=== PATIENT | female | born 1965 | race American Indian/Alaskan Native ===

== ENCOUNTER 2021-02-08 20:59 | Emergency (ER) | payer OTHER ==
--- NOTE | 2021-02-08 21:53 | Event Note ---
ED Screening Note ED Screening Note: Dizziness with sensation of room spinning for the last 2 days Has associated nausea and vomiting symptoms are positional This initial assessment/diagnostic orders/clinical plan/treatment(s) is/are subject to change based on patients health status, clinical progression and re- assessment by fellow clinical providers in the ED. Further treatment and workup at subsequent clinical providers discretion. Patient/guardian urged not to elope from the ED as their condition may be serious if not clinically assessed and managed. Initial orders include: Labs, urine, EKG
[2021-02-08 23:31] LABS: Basophils # (Auto) 0.1 K/mm3 (0.0-0.1); Eosinophils # (Auto) 0.1 K/mm3 (0.0-0.4); Eosinophils % (Auto) 2.1 % (0.0-4.3); Hematocrit 40.3 % (30.3-42.9); Hemoglobin 13.3 gm/dl (10.1-14.3); Lymphocytes # (Auto) 2.4 K/mm3 (1.2-5.4); Lymphocytes % (Auto) 39.7 % (13.4-35.0); Mean Corpuscular HGB Conc 33 % (30-34); Mean Corpuscular Volume 85 fl (79-97); Monocytes # (Auto) 0.5 K/mm3 (0.0-0.8); Platelet Count 256 K/mm3 (140-440); Red Blood Count 4.73 M/mm3 (3.65-5.03); Red Cell Distribution Width 17.5 % (13.2-15.2)
[2021-02-08 23:52] LABS: Alanine Aminotransferase 24 units/L (7-56); Albumin 4.3 g/dL (3.9-5); BUN/Creatinine Ratio 20; Blood Urea Nitrogen 16 mg/dL (7-17); Calcium 9.3 mg/dL (8.4-10.2); Hemolysis Index 1
[2021-02-09 01:36] LABS: Bilirubin,Urine NEG (Negative); Blood,Urine NEG (Negative); Color,Urine Yellow (Yellow); Mucus,Urine 1+ /HPF; Protein,Urine <15 mg/dL mg/dL (Negative); Urobilinogen,Urine < 2.0 mg/dL (<2.0)
[2021-02-09] MEDS ORDERED: MECLIZINE 25 MG TAB PO ONE (08:06)
--- NOTE | 2021-02-09 08:11 | Emergency Department Report ---
HPI - General Chief Complaint: Nausea/Vomiting/Diarrhea Time Seen by Provider: 02/08/21 21:52 - HPI HPI: Room 25 The patient is a 55-year-old female present with a chief complaint of dizziness. The patient states on 01/23/2021 clonidine doses was decreased from 0.2 to 0.1 daily. The patient states approximately 2 to 3 days ago she began feeling dizzy and lightheaded. Patient states there were certain positions that she can find to decrease the symptoms. While lying down she states that feels as though the room is spinning. Patient states she then developed a frontal headache which has been constant. Patient admits to nausea vomiting. Patient denies any preceding trauma, fever or cough. Patient gives her headache score 5/10. The patient drove herself to the emergency department and there are no visitors present ED Past Medical Hx - Past Medical History Previous Medical History?: No Hx Hypertension: Yes - Surgical History Hx Appendectomy: Yes Hx Breast Surgery: Yes Additional Surgical History: - Family History Family history: no significant - Social History Smoking Status: Never Smoker Substance Use Type: None (Denies illicit drug), Alcohol (Occasional) - Medications Home Medications: Home Medications Medication Instructions Recorded Confirmed Last Taken Type HYDROcodone/APAP 5-325 [[place] 1 each PO Q6HR PRN #20 tablet 06/12/14 Unknown Rx 5/325] Omeprazole [Prilosec] 20 mg PO QDAY #30 capsule. 06/12/14 Unknown Rx Promethazine [Phenergan] 25 mg PO Q6H PRN #30 tablet 06/12/14 Unknown Rx Meclizine [Antivert] 25 mg PO TID PRN #20 tablet 02/09/21 Unknown Rx Ondansetron [Zofran ODT TAB] 8 mg PO Q8HR #20 tab.rapdis 02/09/21 Unknown Rx ED Review of Systems ROS: Stated complaint: HEADACHE;LIGHTHEADED;N/V Other details as noted in HPI Constitutional: denies: fever Eyes: denies: eye pain ENT: denies: throat pain Respiratory: denies: cough Cardiovascular: denies: chest pain Endocrine: no symptoms reported Gastrointestinal: nausea, vomiting Genitourinary: denies: dysuria Musculoskeletal: denies: back pain Neurological: headache Physical Exam - Physical Exam Vital Signs: Vital Signs 02/08/21 21:48 Temperature 98.2 F Pulse Rate 87 Respiratory 18 Rate Blood Pressure 157/89 O2 Sat by Pulse 97 Oximetry Physical Exam: GENERAL: The patient is well-developed well-nourished female lying on stretcher not appearing to be in acute distress. [] HEENT: Normocephalic. Atraumatic. Extraocular motions are intact. Patient has moist mucous membranes. No nystagmus noted NECK: Supple. Trachea midline CHEST/LUNGS: Clear to auscultation. There is no respiratory distress noted. HEART/CARDIOVASCULAR: Regular. There is no tachycardia. There is no gallop rub or murmur. ABDOMEN: Abdomen is soft, nontender. Patient has normal bowel sounds. There is no abdominal distention. SKIN: There is no rash. There is no edema. There is no diaphoresis. NEURO: The patient is awake, alert, and oriented. The patient is cooperative. The patient has no focal neurologic deficits. The patient has normal speech. Cranial nerves II through XII grossly intact. GCS 15. No dysmetria noted with [id number] bilaterally MUSCULOSKELETAL: There is no evidence of acute injury. ED Course Vital Signs 02/08/21 21:48 Temperature 98.2 F Pulse Rate 87 Respiratory 18 Rate Blood Pressure 157/89 O2 Sat by Pulse 97 Oximetry ED Medical Decision Making - Lab Data Result diagrams: 02/08/21 22:54 02/08/21 22:54 Laboratory Tests 02/08/21 02/08/21 02/08/21 22:54 22:54 Unknown WBC 5.9 RBC 4.73 Hgb 13.3 Hct 40.3 MCV 85 MCH 28 MCHC 33 RDW 17.5 H Plt Count 256 Lymph % (Auto) 39.7 H [place] % (Auto) 8.0 H Eos % (Auto) 2.1 Baso % (Auto) 1.0 Lymph # (Auto) 2.4 [place] # (Auto) 0.5 Eos # (Auto) 0.1 Baso # (Auto) 0.1 Seg Neutrophils % 49.2 Seg Neutrophils # 2.9 Sodium 139 Potassium 4.1 Chloride 101.9 Carbon Dioxide 27 Anion Gap 14 BUN 16 Creatinine 0.8 Estimated GFR > 60 BUN/Creatinine Ratio 20 Glucose 95 Calcium 9.3 Magnesium 2.10 Total Bilirubin 0.30 AST 21 ALT 24 Alkaline Phosphatase 116 Total Creatine Kinase 134 Total Protein 7.5 Albumin 4.3 Albumin/Globulin Ratio 1.3 Urine Color Yellow Urine Turbidity Slightly-cloudy Urine pH 5.0 Ur Specific [place] 1.025 Urine Protein <15 mg/dl Urine Glucose (UA) Neg Urine Ketones Neg Urine Blood Neg Urine Nitrite Neg Urine Bilirubin Neg Urine Urobilinogen < 2.0 Ur Leukocyte Esterase Neg Urine WBC (Auto) 1.0 Urine RBC (Auto) 2.0 U Epithel Cells (Auto) 9.0 Urine Mucus 1+ - EKG Data -: EKG Interpreted by [place] EKG shows normal: sinus rhythm Rate: normal - EKG Data When compared to previous EKG there are: previous EKG unavailable Interpretation: nonspecific ST-T wave blayne (T wave inversion in lead III) - Radiology Data Radiology results: report reviewed (CT head), image reviewed (CT head) [facility] [address] [id number] Cat Scan Report Signed Patient: JHOAN HAY MR#: [id number] : 1965 Acct:[id number] Age/Sex: 55 / F ADM Date: 02/08/21 Loc: ED Attending Dr: Ordering Physician: ZACKARY CRAWLEY MD Date of Service: 02/09/21 Procedure(s): CT head/brain wo con Accession Number(s): [id number] cc: ZACKARY CRAWLEY MD CT head/brain wo con INDICATION / CLINICAL INFORMATION: Vertigo. TECHNIQUE: All CT scans at this location are performed using CT dose reduction for ALARA by means of automated exposure control. COMPARISON: None available. FINDINGS: Ventricle size is normal for age. No mass or mass effect is seen. There is no evidence of intracranial hemorrhage. No obvious area of infarction is identified. Visualized paranasal sinuses are clear. IMPRESSION: No acute findings Signer Name: Martin Gamez MD FACR Signed: 02/09/2021 8:52 AM Workstation Name: [id number] Transcribed By: MS Dictated By: Martin Gamez MD Electronically Authenticated By: Martin Gamez MD Signed Date/Time: 02/09/21851 DD/ 9 TD/TT: Print Cancel - Differential Diagnosis Vertigo, ICH, hypertensive urgency, dehydration, Critical care attestation.: If time is entered above; I have spent that time in minutes in the direct care of this critically ill patient, excluding procedure time. ED Disposition Clinical Impression: Vertigo Disposition: DC-01 TO HOME OR SELFCARE Is pt being admited?: No Does the pt Need Aspirin: No Condition: Stable Instructions: Dizziness, Tnez-no-Yamc, Vertigo, [id number]-[id number] Additional Instructions: Return to the emergency department should you develop worsening symptoms, inability to tolerate food or liquids, high fever or any other concerns Prescriptions: Meclizine [Antivert] 25 mg PO TID PRN #20 tablet PRN Reason: Vertigo Ondansetron [Zofran ODT TAB] 8 mg PO Q8HR #20 tab.rapdis Referrals: [facility] MD ATIYA [Primary Care Provider] - 3-5 Days BRIANNE KAPLAN MD [Staff Physician] - 3-5 Days (Dr. Kaplan is a neurologist. Please follow-up with him for further evaluation) Time of Disposition: 09:17
--- NOTE | 2021-02-09 08:56 | Cat Scan Report ---
CT head/brain wo con INDICATION / CLINICAL INFORMATION: Vertigo. TECHNIQUE: All CT scans at this location are performed using CT dose reduction for ALARA by means of automated e xposure control. COMPARISON: None available. FINDINGS: Ventricle size is normal for age. No mass or mass effect is seen. There is no evidence of intracrania l hemorrhage. No obvious area of infarction is identified. Visualized paranasal sinuses are clear. IMPRESSION: No acute findings Signer Name: Martin Gamez MD FACR Signed: 02/09/2021 8:52 AM Workstation Name: [id number]
[2021-02-09 09:11] VITALS: BP 142/77
--- NOTE | 2021-02-11 13:34 | Electrocardiograph Report ---
[facility] Test Date: 2021-02-08 Test Time: 21:58:38 Pat Name: JHOAN HAY Department: Room: Gender: F Project Development Director: DUONG : 1965 Requested By: ROB ELIZABETH Order Number: [id number] Reading MD: Keon Alves Measurements Intervals [place] Rate: 73 P: 62 [place]: 164 QRS: 68 QRSD: 102 T: -5 QT: 394 QTc: 435 Interpretive Statements Sinus rhythm Probable left atrial enlargement No previous ECG available for comparison Electronically Signed On 02-11-2021 13:34:23 EDT by Keon Alves
== END 2021-02-09 09:45 | disposition home or self-care (01) ==
LOC: ED 20:59
DX: R42 Dizziness and giddiness (principal); I10 Essential (primary) hypertension; Z98.890 Other specified postprocedural states; Z79.899 Other long term (current) drug therapy
CPT/HCPCS: 36415; 70450; 80053; 81001; 82550; 83735; 85025; 93005